=== PATIENT | female | born 1995 | race Caucasian/White ===

== ENCOUNTER 2016-10-17 13:13 | Emergency (ER) | payer MEDICAID ==
[~2016-10-17] VITALS: Ht 157.5 cm; Wt 92.0 kg
[2016-10-17 13:18] VITALS: Ht 157.5 cm; Wt 92.0 kg
[2016-10-17] MEDS ORDERED: ALBUTEROL 0.083% (NEB) 2.5 MG/3 ML AMP HHN STA (16:33)
[2016-10-17] MEDS ORDERED: IPRATROPIUM (NEB) 0.5 MG/2.5 ML AMP HHN ONE (17:00)
[2016-10-17] MEDS ORDERED: DEXAMETHASONE 10 MG/ML 1 ML INJ PO ONE (17:00)
--- NOTE | 2016-10-17 17:19 | ERD ---
ER Documentation Chief Complaint Date/Time DATE: 10/17/16 TIME: 17:16 Chief Complaint Complains of SOB Hx of allergies that triggers SOB HPI Patient is a 20-year-old female with a history of asthma and allergies who presents to the ED with cough, runny nose, congestion and shortness of breath 2 days. She states that she usually has an albuterol inhaler but did not help with her symptoms. She states that the allergies in the environment have triggered her cough. She denies difficulty breathing. She denies leg pain or swelling. She denies recent travel or recent surgeries. She has not taken any other medication for her symptoms. No other complaints. ROS All systems reviewed and are negative except as per history of present illness. Medications Home Meds Active Scripts Cetirizine Hcl* (Zyrtec*) 10 Mg Capsule, 10 MG PO DAILY, #10 TAB.CHEW Prov:LETITIA KINSEY PA-C 10/17/16 Benzonatate* (Tessalon Perle*) 100 Mg Capsule, 100 MG PO Q8H Y for COUGH for 14 Days, CAP Prov:LETITIA KINSEYC 10/17/16 Albuterol Sulfate* (Proair HFA*) 8.5 Gm Hfa.aer.ad, 2 PUFF INH Q4, #1 INHALER Prov:LETITIA KINSEY PA-C 10/17/16 Allergies Allergies: Coded Allergies: No Known Allergy (Unverified , 10/17/16) PMhx/Soc Medical and Surgical Hx: pt denies Medical Hx, pt denies Surgical Hx History of Surgery: No Anesthesia Reaction: No Hx Neurological Disorder: No Hx Respiratory Disorders: Yes Hx Cardiac Disorders: No Hx Psychiatric Problems: No Hx Miscellaneous Medical Probl: No Hx Alcohol Use: No Hx Substance Use: No Hx Tobacco Use: No Smoking Status: Never smoker FmHx Family History: No coronary disease, No diabetes, No other Physical Exam Vitals Vital Signs Date Time Temp Pulse Resp B/P Pulse Ox O2 Delivery O2 Flow Rate FiO2 10/17/16 17:01 79 20 95 21 10/17/16 13:18 98.6 79 20 148/60 95 Physical Exam GENERAL: Well-developed, well-nourished female. Appears in no acute distress. HEAD: Normocephalic, atraumatic. EYES: Pupils are equally reactive bilaterally. EOMs grossly intact. No conjunctival erythema. ENT: Moist mucous membranes. No uvula deviation. No kissing tonsils. No exudates. NECK: Supple. No lymphadenopathy or thyromegaly. No meningismus. negative kernig. negative brudinski. LUNG: Clear to auscultation bilaterally. No rhonchi, wheezing, rales or coarse breath sounds. No retractions or nasal flaring. HEART: Regular rate and rhythm. No murmurs, rubs or gallops. NEUROLOGIC: Alert and oriented. Moving all four extremities. 5/5 strength in all extremities. Normal speech. Steady gait. SKIN: Normal color. Warm and dry. No rashes or lesions. Capillary refill < 2 seconds Results 24 hrs Current Medications Medications (Trade) Dose Ordered Sig/Dolores Route PRN Reason Start Time Stop Time Status Last Admin Dose Admin Albuterol (Proventil 0.083% (Neb)) 1.25 mg ONCE STAT HHN 10/17/16 16:33 10/17/16 16:36 DC 10/17/16 16:54 Ipratropium [place] (Atrovent 0.02% (Neb)) 0.5 mg ONCE ONCE HHN 10/17/16 17:00 10/17/16 17:01 DC 10/17/16 16:54 Dexamethasone (Decadron) 10 mg ONCE ONCE PO 10/17/16 17:00 10/17/16 17:01 DC 10/17/16 16:39 Procedures/MDM ER COURSE: I kept the patient and/or family informed of laboratory and diagnostic imaging results throughout the emergency room course. IMAGING STUDIES [place] [id number] Radiology Main Line: [phone] DIAGNOSTIC IMAGING REPORT Patient: COSTA THOMAS : 1995 Age: 20 Sex: F [id number] DOS: 10/17/16 1633 Ordering MD: LETITIA KINSEY PA-C Location: [facility] Room/Bed: PROCEDURE: XR Chest. CLINICAL INDICATION: Cough. TECHNIQUE: Chest x-ray, single view. COMPARISON: . FINDINGS: The cardiomediastinal silhouette is normal. The lungs are clear. Skeletal structures and upper abdomen are unremarkable. IMPRESSION: Unremarkable chest x-ray. RPTAT: [facility] .Yessenia Moore MD, Date Time Electronically viewed and signed by .Yessenia Moore MD, on 10/17/2016 17:45 .T/ CC: LETITIA KINSEY PA-C PROCEDURES rt CONSULT. Albuterol, Atrovent. Tolerated well MEDICATIONS Decadron 10 mg p.o. Tolerated well with no adverse reaction. MEDICAL DECISION MAKING: This is a 20-year-old female who presents with cough, congestion, shortness of breath 2 days. Vital signs were reviewed. Patient is afebrile. Patient is not hypoxic. Patient is not toxic or ill-appearing. Patient has oxygen saturation of 95. Her x-rays read by radiologist is unremarkable. Low suspicion for pneumonia, PE, pneumothorax, ACS, epiglottitis, obstruction, TB, pertussis, meningitis, sepsis. I reexamined patient after administration of breathing treatment and she stated improvement in symptoms. DISCHARGE: At this time, patient is stable for discharge and outpatient management with no new complaints during the ER course. Patient was sent home with albuterol inhaler, Zyrtec, Nieves Adam and a copy of her imaging report.. Patient will be discharged home with instructions to recheck for new or worsening symptoms such as fever, nausea, weakness, LOC and to follow up with primary care in the next 1-2 days. Patient was advised to return to the ER for any new or worsening symptoms. Plan was discussed and patient and/or family understands and agrees. Home instructions were given. Departure Diagnosis: Primary Impression: Acute URI Condition: Stable LETITIA KINSEY PA-C October 17, 2016 17:19
--- NOTE | 2016-10-17 17:46 | RADRPT ---
PROCEDURE: XR Chest. CLINICAL INDICATION: Cough. TECHNIQUE: Chest x-ray, single view. COMPARISON: . FINDINGS: The cardiomediastinal silhouette is normal. The lungs are clear. Skeletal structures and upper abd omen are unremarkable. IMPRESSION: Unremarkable chest x-ray. RPTAT: [facility] .Yessenia Moore MD, MD Date Time Electronically viewed and signed by .Yessenia Moore MD, on 10/17/2016 17:45 .T/
[2016-10-17] MEDS ORDERED: CETI10CA PO (18:04)
[2016-10-17] MEDS ORDERED: BENZ100C70 PO (18:04)
[2016-10-17] MEDS ORDERED: ALBU8.5H3 INH (18:04)
[2016-10-17 18:17] VITALS: BP 132/70; PULSE 66; RESP 18
== END 2016-10-17 18:19 | disposition home or self-care (01) ==
LOC: FTE 13:13
DX: J06.9 Acute upper respiratory infection, unspecified (principal)
CPT/HCPCS: 71010; 94664; J1100; Z7502; Z7610